=== PATIENT | male | born 1960 | race Caucasian/White ===

== ENCOUNTER 2020-08-07 13:32 | Emergency (ER) | payer OTHER ==
[~2020-08-07] VITALS: Ht 170.2 cm; Wt 59.0 kg
--- NOTE | 2020-08-07 14:05 | NUR ---
[id number] C/O AUDITORY HALLUCINATIONS FROM "UNKNOWN" PAIN MEDS. ALERT AND ORIENTED X2. THE PATIENT DENIES HAVING HALLUCINATIONS AT THIS TIME. DENIES SOB. RESPIRATION REGULAR AND UNLABORED. DENIES SI/HI. WILL CONTINUE TO MONITOR THE PATIENT.
--- NOTE | 2020-08-07 14:33 | NUR ---
BROTHER NEETA VALDOVINOS, PHONE [phone] ZANE [phone] - IN [place]
[2020-08-07 14:43] LABS: BASOPHILS % (AUTO) 0.5 % (0.0-2.0); EOSINOPHILS % (AUTO) 0.1 % (0.0-6.0); HEMATOCRIT 42 % (39-51); HEMOGLOBIN 14.2 g/dL (13.5-17.5); LYMPHOCYTES % (AUTO) 14.4 % (20.0-44.0); MEAN CORPUSCULAR HGB CONC 34 g/dl (31.0-36.0); MONOCYTES # (AUTO) 0.9 /CMM (0.1-1.30); MONOCYTES % (AUTO) 13.5 % (2.0-12.0); NEUTROPHILS # (AUTO) 4.7 /CMM (1.8-8.9); NEUTROPHILS % (AUTO) 71.5 % (43.0-81.0); PLATELET COUNT (AUTO) 114 /CMM (150-450); RED BLOOD CELL COUNT(AUTO) 3.94 MIL/uL (4.5-6.0); WHITE BLOOD COUNT (AUTO) 6.6 K/uL (4.3-11.0)
[2020-08-07 14:44] LABS: MEAN CORPUSCULAR VOLUME 107 fL (80-96)
[2020-08-07 14:48] LABS: CALCIUM, SERUM 10.4 mg/dL (8.5-10.1); CARBON DIOXIDE 16 mmol/L (21-32); CHLORIDE 92 mmol/L (98-107); CREATININE 1.3 mg/dL (0.6-1.3); GLUCOSE 73 mg/dL (74-106); POTASSIUM 3.6 mmol/L (3.5-5.1); SODIUM SERUM 135 mmol/L (136-145); UREA NITROGEN, BLOOD 33 mg/dL (7-18)
--- NOTE | 2020-08-07 14:51 | NUR ---
FRIEND MONIQUE CALLED LEFT CONTACT # [phone]
[2020-08-07 14:56] LABS: ACETAMINOPHEN 0 ug/ml (10-30); ALANINE AMINOTRANSFERASE 137 U/L (12-78); ALBUMIN 4.6 g/dL (3.4-5.0); ALCOHOL, BLOOD < 3 mg/dL (0-0); ALKALINE PHOSPHATASE 45 U/L (46-116); ASPARTATE AMINOTRANSFERASE 268 U/L (15-37); BILIRUBIN,DIRECT 0.4 mg/dL (0.0-0.2); BILIRUBIN,TOTAL 1.5 mg/dL (0.2-1.0); TOTAL PROTEIN, SERUM 7.9 g/dL (6.4-8.2)
--- NOTE | 2020-08-07 15:02 | NUR ---
URINE AND COVID SWAB SENT TO LAB.
[2020-08-07] MEDS ORDERED: IV NS 0.9% 1,000 ML IV ONE (16:00)
[2020-08-07] MEDS ORDERED: POTASSIUM CHLORIDE 20 MEQ TAB.PRT.SR PO ONE ×2 (16:27→16:30)
[2020-08-07 16:56] LABS: BILIRUBIN,URINE SMALL (NEGATIVE); COLOR,URINE YELLOW (YELLOW); LEUKOCYTE ESTERASE ,URINE NEGATIVE (NEGATIVE); NITRITE, URINE NEGATIVE (NEGATIVE); PH,URINE 5.5 (5.0-8.0); PROTEIN,URINE 30 mg/dl (NEGATIVE); UGLUCOSE NEGATIVE (NEGATIVE); UROBILINOGEN,URINE 0.2 EU/dL (0.2)
[2020-08-07 17:04] LABS: BACTERIA,URINE 1+ /HPF (None Seen); HYALINE CASTS, URINE Few /LPF (None Seen); SQUAMOUS EPITHELIAL CELL,UR Few /HPF (None Seen); URINE AMORPHOUS URATE Few /HPF (None Seen)
--- NOTE | 2020-08-07 18:08 | NUR ---
RECIEVED A CALL FROM KARIN DOUGLAS FROM [facility]. WILL SET UP PEER TO PEER.
[2020-08-07] MEDS ORDERED: CEFTRIAXONE 1GM BAG (ER ONLY) 1 GM/50 ML PIGGYBACK IV ONE (19:00)
[2020-08-07] MEDS ORDERED: CEFTRIAXONE 1GM BAG (ER ONLY) 50 ML IV ONE (19:04)
--- NOTE | 2020-08-07 19:38 | NUR ---
ZANE ([employer]): [phone]
--- NOTE | 2020-08-07 20:43 | NUR ---
TRANSFER INFO: PT ACCEPTED BY [facility], ACCEPTING MD: CESAR FREEDMAN FOR REPORT [phone], ETA TO FOLLOW
--- NOTE | 2020-08-07 22:18 | NUR ---
[facility] 2300 PER CM KARIN
--- NOTE | 2020-08-07 22:53 | NUR ---
REPORT GIVEN TO CESAR CUEVAS FROM [facility]
--- NOTE | 2020-08-07 23:25 | NUR ---
[facility] [phone]
--- NOTE | 2020-08-07 23:29 | NUR ---
REPORT GIVEN TO CES[facility] MCNULTY [facility] [place]
--- NOTE | 2020-08-07 23:32 | NUR ---
REPORT GIVEN TO [facility] [place]
[2020-08-07 23:51] VITALS: BP 108/83
== END 2020-08-07 23:52 | disposition short-term general hospital (02) ==
LOC: ER 13:37
DX: R44.3 Hallucinations, unspecified (principal); R79.89 Other specified abnormal findings of blood chemistry; I67.2 Cerebral atherosclerosis; Z72.89 Other problems related to lifestyle; R46.2 Strange and inexplicable behavior; N39.0 Urinary tract infection, site not specified; B96.89 Other specified bacterial agents as the cause of diseases classified elsewhere; Z20.822 Contact with and (suspected) exposure to COVID-19
CPT/HCPCS: 36415; 70450; 71045; 80048; 80076; 80299; 80307; 80320; 81001; 84484; 85025; 85610; 85730; 87040 ×2; 87081; 87426; 93005; 96361; 96365; 99285; C9803; J0696; J7030; G0480